=== PATIENT | male | born 1980 | race Caucasian/White ===

== ENCOUNTER 2019-01-06 11:46 | Inpatient (IN) ==
[2019-01-06] MEDS ORDERED: VANCOMYCIN IV PER PHARMACY MISC SCH (12:15)
[2019-01-06] MEDS ORDERED: ZOFRAN IV PRN (13:09)
[2019-01-06] MEDS ORDERED: TYLENOL PO PRN (13:09)
--- NOTE | 2019-01-06 13:27 | HISTORY AND PHYSICAL ---
HISTORY: The patient stated that, I think on Friday, this is Friday, started noticing some swelling and pain in the left groin, consistent with what sounds like a carbuncle or a sebaceous cyst. It continued to grow and it became more painful with fluctuance and surrounding cellulitis. Saw Dr. Mauro in his office and he sent him over here. PAST MEDICAL HISTORY: 1. Hypertension. 2. Hyperlipidemia. 3. He has had MRSA in the left leg x2, the lower leg. This was after he was in a hot tub. He was down in [place] on vacation. 4. He has had a history of sleep apnea. PAST SURGICAL HISTORY: I think he has had some back surgery and surgery on his left knee. FAMILY HISTORY: Unremarkable. Did not report any distinct or certain organ system illnesses. SOCIAL HISTORY: Lives with his and family. Negative for alcohol, tobacco, or illicit drugs. REVIEW OF SYSTEMS: General: He is not reporting weight gain or loss. No fever or chills. HEENT: No change in visual or hearing acuity. No neck pain or adenopathy. Respiratory: No increased work of breathing or dyspnea. Cardiovascular: No chest pain or tachy palpitations. Gastrointestinal and Genitourinary: No gross hematuria or dysuria. Musculoskeletal and Neurologic: No focal complaints. PHYSICAL EXAMINATION: GENERAL: Awake and alert, oriented x3. Pleasant. Can give a good history. HEENT: Pupils are equal. NECK: No distended neck veins. LUNGS: Clear in all lung cao. CARDIOVASCULAR EXAMINATION: Regular rhythm and rate without murmur or S3. ABDOMEN: Soft. SKIN: Warm and dry. He has about a 3.5 cm swelling in the left femoral triangle which is fluctuant and very tender. Surrounding area of erythema and cellulitis. EXTREMITIES: His legs have no edema and no palpable cords. ASSESSMENT AND PLAN: 1. Appears to have a subcutaneous abscess. Suspect it is a carbuncle. It will need to be drained. Has some fluctuance. Suspect we will grow either streptococcus or staphylococcus, and we will put him on empiric antibiotics. Dr. Mauro is following. General surgery will be involved. 2. Hypertension. We will watch his blood pressure. 3. History of sleep apnea. Aware. 4. Hypercholesterolemia. Aware. 5. Labs are pending at this time. cc: Pardeep Shipman MD
--- NOTE | 2019-01-06 13:31 | Diag Imaging Result Doc PS360 ---
EXAM: CT PELVIS W/O CONTRAST INDICATION: left groin cellulitis TECHNIQUE: This exam was performed using automated exposure control, adjustment of mA or kV according to patient size, and/or use of iterative reconstruction technique. COMPARISON: 07/26/2010 FINDINGS: There is skin thickening and there is extensive edema involving the subcutaneous fat in the suprapubic and inguinal region on the left. No well-defined fluid collection is identified to indicate abscess given the limitations of an unenhanced study. There is mild reactive inguinal lymphadenopathy on the left. The intrapelvic structures are unremarkable. There is no evidence of acute osseous abnormality. IMPRESSION: Left suprapubic and inguinal cellulitis with reactive left inguinal lymphadenopathy as described. Electronically signed by Rj Back 01/06/2019 1:29 PM
[2019-01-06] MEDS: VANCOMYCIN 2 GM in NS 500 ML IV SCH (17:33)
--- NOTE | 2019-01-06 20:47 | INFECTIOUS DISEASE CONSULT REP ---
DATE: 01/06/2019 CONCLUSION: Mr. eWsley has a left groin cellulitis, after 2 recent bouts of methicillin-resistant Staphylococcus aureus infections to his left lower extremity. RECOMMENDATIONS: We have obtained a CT of his pelvis, and culture has been taken to the left groin wound, which is oozing. We expect the culture will show MRSA since he has had a recent history of 2 separate MRSA infections to that same lower extremity. We will start him on IV vancomycin per pharmacy to dose. He will need isolation due to history of recent MRSA. These plans have been discussed with and recommended by Dr. Mauro. DISCUSSION: Mr. Wesley first started having issues with his left calf back in October of this year at which time he was found to have a MRSA which did clear up after treatment with Bactrim. About a month and a half later, he had another MRSA infection which was found in his left ankle and that also cleared after another round of Bactrim. This past Friday he started having redness and swelling to the left groin which quickly progressed to cellulitis extending to the left inguinal and suprapubic areas with a raised draining wound. We saw him in our office this morning, and made him a direct admit to the hospital. REVIEW OF SYSTEMS: Constitutional: He denies any fever, chills or recent weight loss or gain. HEENT: No vision or hearing problems or tinnitus. Endocrine: No diabetes or thyroid issues. Respiratory: No shortness of breath, cough or sputum. Cardiovascular: Denies chest pain or palpitations. GI: No nausea, vomiting, or diarrhea. : No dysuria or flank pain. Musculoskeletal: No arthritis, joint or muscle aches or pains. Neurologic: No seizures, stroke or mini-stroke in his history. Hematology/oncology: No Cancer or blood dyscrasias in his history. Psychiatric: Positive for anxiety which is well controlled with medication. PAST MEDICAL HISTORY: Includes hypertension, hyperlipidemia, sleep apnea with CPAP at home, obesity, and anxiety. PAST SURGICAL HISTORY: Includes laminectomy x2 and a left knee arthroscopy. LABORATORY AND X-RAY: Today his creatinine is 0.9. His pelvis CT shows left suprapubic and inguinal cellulitis with reactive lymphadenopathy. There is no well-defined fluid collection to indicate abscess. The Gram stain of his left groin shows gram-positive cocci, 1+ and the final culture is pending. FAMILY HISTORY: Positive for hypertension and hyperlipidemia. 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 He lives with his and 2 children. They have 2 dogs and a cat. He used to smoke but quit over 10 years ago. No alcohol or illicit drug use. INFECTIOUS DISEASE: No history of UTIs or pneumonia; however, he has had prostatitis on two separate occasions. ALLERGIES: No known allergies to food or drugs. MEDICATIONS: Include Zocor, Cozaar, Norvasc, Bactrim, Belsomra, Trintellix, Victor and diclofenac. PHYSICAL EXAMINATION: Vital Signs: Are not listed at this point. His weight is 129 kg. Height is 6 feet. General: This is a fairly healthy-appearing, middle-aged gentleman. He is lying in bed, currently in no acute distress. HEENT: Atraumatic, normocephalic. Oral mucous membranes are pink and moist. Conjunctivae are pink. Neck: Supple. Trachea is midline. Cardiovascular: Heart rate and rhythm are regular. No gallops or murmurs are noted. Respiratory: Lung sounds are clear to auscultation bilaterally. No work of breathing is noted. Abdomen: Soft, obese, nontender. Bowel sounds are active. Integumentary: There is a raised, erythematous wound noted to his left groin, which is extremely tender with multiple areas of white pustules to the wound bed. The redness does extend down to the suprapubic and inguinal areas. Neurologic: He is awake, alert, oriented, able to move all extremities and walk independently. Thank you for allowing us to see Mr. Wesley. Dictated by NINA Madden for Alan Mauro MD cc: Alan Mauro MD [facility]
--- NOTE | 2019-01-06 21:13 | GENERAL SURGERY CONSULTATION ---
DATE: 01/06/2019 REQUESTING PHYSICIAN: Hospitalist. REASON FOR CONSULTATION: Left groin abscess. HISTORY OF PRESENT ILLNESS: A 38-year-old gentleman who started noticing swelling in his left groin with erythema. They thought it was an infection. He had previously had these to his leg and was started on Bactrim. It has progressively gotten worse and more of an issue. He was sent to the emergency department. He had a CT scan done that showed cellulitis, but no discrete abscess in his groin. He has been admitted for IV antibiotics since he failed outpatient antibiotics. He is currently having pain in the left groin, but no other major issues or complaints. PAST MEDICAL HISTORY: Includes hypertension, hyperlipidemia, history of MRSA, history of sleep apnea. PAST SURGICAL HISTORY: Includes previous back surgery and surgery on his left knee. FAMILY HISTORY: Reviewed with patient, noncontributory. SOCIAL HISTORY: Lives with his . No alcohol, tobacco, or illicit drugs. HOME MEDICATIONS: Reviewed. He was on Bactrim. Current MAR reviewed. ALLERGIES: None. REVIEW OF SYSTEMS: A full 14 systems were reviewed and negative except those specified in HPI. PHYSICAL EXAMINATION: Vital Signs: Patient is currently afebrile. His vital signs stable. General: No acute distress. Alert, oriented male, looks stated age. HEENT: Normocephalic, atraumatic. Pupils equal, round, reactive to light. Mucous membranes moist. Oropharynx benign. Neck: Supple. Trachea midline. Cardiovascular: Regular rate and rhythm. Lungs: Grossly clear. Abdomen: Soft, nontender, nondistended. Extremities: Moves all extremities. Skin: Erythema noted to the left groin with some areas of induration. This is right above the inguinal canal. I do not feel any discrete fluctuance at this point. No active drainage. The erythema does spread significantly around the area. No crepitus noted. Vascular: All extremities perfuse. Neurologic: Grossly intact. LABORATORY: Creatinine is 0.9. Other labs are currently pending. CT scan as noted above. ASSESSMENT AND PLAN: A 38-year-old male with left groin erythema. 1. Left groin erythema. At this time, he does not have a discernible abscess, but he may develop one. We will keep him on IV antibiotics. We will add warm compresses to the area. We will monitor him closely. If he does seem developed something that can be drained, we will perform an incision and drainage, but otherwise we will follow up. 2. Multiple medical comorbidities currently being managed by the hospitalist service. cc: Ga Steinberg MD
[2019-01-07] MEDS: VANCOMYCIN 2 GM in NS 500 ML IV SCH ×3 (03:56→17:49)
--- NOTE | 2019-01-07 06:04 | GENERAL SURGERY PROGRESS NOTE ---
DATE: 01/07/2019 SUBJECTIVE: Patient seems to be doing okay. No major issues. OBJECTIVE: Vital signs: Patient is currently afebrile. His vital signs are stable. General: No acute distress. HEENT: Normocephalic, atraumatic. Pupils equal, round, reactive to light. Mucous membranes moist. Oropharynx benign. Neck: Supple. Trachea midline. Cardiovascular: Regular rate and rhythm. Lungs: Grossly clear. Abdomen: Soft, nontender, nondistended. Extremities: Moves all extremities. Skin: Wound to left groin slightly improved, does not seem drainable at this time, but is softening up a little bit, so may be more amenable in the near future. Vascular: All extremities perfused. Neurologic: Grossly intact. LABORATORY: None this morning as of yet. ASSESSMENT AND PLAN: A 38-year-old gentleman with left groin abscess. Left groin abscess. At this time, we will continue IV antibiotics. We will continue warm compresses. Again, it may develop into something I can drain at the bedside, which we would do if it becomes more fluctuant; but otherwise, we will continue current treatment. cc: Ga Steinberg MD
[2019-01-07 06:23] LABS: BASO# 0.03 X1000 (0.0-0.2); BASO% 0.3 % (0.0-0.8); EOS# 0.13 X1000 (0.0-0.7); EOS% 1.1 % (0.0-10.0); HEMATOCRIT 39.9 % (42.0-52.0); IMM GRAN# 0.04 X1000 (0.0-0.04); IMM GRAN% 0.3 % (0.0-0.5); LYMPH# 2.78 X1000 (1.2-3.4); LYMPH% 23.2 % (20.5-51.1); MCH 30.6 PG (27-31); MCHC 35.1 g/dL (33-37); MCV 87.1 FL (81-99); MONO# 1.39 X1000 (0.11-0.59); MONO% 11.6 % (1.7-9.3); MPV 9.9 FL (7.4-10.4); NEUT# 7.59 X1000 (1.4-6.5); NEUT% 63.5 % (42.2-75.2); PLT 249 X1000 (130-400); RBC 4.58 XMIL (4.7-6.1); RDW 12.4 % (11.5-14.5); WBC 11.96 X1000 (4.8-10.8)
[2019-01-07 06:57] LABS: AGAP 10; BUN 9 mg/dL (8-22); CALCIUM 8.8 mg/dL (8.8-10.2); CHLORIDE 101 mmol/L (98-107); COSMO 271; CREATININE 0.9 mg/dL (0.7-1.2); ESTIMATED GFR > 60; GLUCOSE 104 mg/dL (70-104); POTASSIUM 3.9 mmol/L (3.5-5.1); SODIUM 136 mmol/L (136-145); TCO2 25 mmol/L (25-35)
--- NOTE | 2019-01-07 19:16 | PROGRESS NOTE ---
DATE: 01/07/2019 SUBJECTIVE: As per the patient, he is feeling better. He is still having tenderness, swelling, redness, and an abscess formation at the level of the left groin area. Surgery Department and Infectious Disease Department following this patient closely. Microbiology showed gram-positive cocci. This patient has been placed on vancomycin. He has a history of MRSA before. OBJECTIVE: Vital Signs: Temperature 99.5 degrees, pulse 66, respiratory rate 16, blood pressure 147/73, oxygen saturation 99 on room air. HEENT: Head normocephalic, no trauma. PERRLA. Neck: Supple. No JVD. No masses. Central trachea. Chest: Clear to auscultation. No wheezing. No rales. Abdomen: Soft, nontender, nondistended. No hepatosplenomegaly. Extremities: He does have a left groin abscess. It is really tender to palpation, redness around it, swollen. It has been draining a little bit spontaneously, but he has some areas that are really hard on palpation. Neurological: The patient is alert and oriented x3. No focal deficits. LABORATORY: WBC 11.9, hemoglobin 14, hematocrit 39.9, platelets 249,000. Sodium 136, potassium 3.9, chloride 101, bicarbonate 25, BUN 9, creatinine 0.9, glucose 104, calcium 8.8. TSH 1.1. ASSESSMENT AND PLAN: 1. Left groin abscess. Continue with antibiotics. Surgery Department on board. Likely, this is going to be drained at some point. 2. Hypertension. Stable. Continue with same treatment. 3. History of methicillin-resistant Staphylococcus aureus in the past. Aware. He has been placed on vancomycin. Likely, this new infection is due to methicillin-resistant Staphylococcus aureus as well. 4. Hyperlipidemia. I will restart this patient's simvastatin. cc: Darren Garcia MD
--- NOTE | 2019-01-07 19:28 | INFECTIOUS DISEASE PROGRESS NO ---
DATE: 01/07/2019 PRESENT ILLNESS: Mr. Wesley is being treated for left groin cellulitis that is growing a gram- positive coccus, which we think will be MRSA in light of his recent MRSA infections to his left lower extremity. MEDICATIONS: He is receiving IV vancomycin per pharmacy dosing. OBJECTIVE: Vital signs: Temperature is 98.4 degrees, pulse rate 74, respiratory rate 16, blood pressure 140/77, O2 saturation is 99% on room air. General: This is a fairly healthy-appearing middle-aged gentleman lying in bed, currently in no acute distress. HEENT: Atraumatic, normocephalic. Oral mucous membranes are pink and moist. Conjunctivae are pink. Neck is supple. Trachea is midline. Respiratory: Lung sounds are bilaterally clear to auscultation with no work of breathing noted. Cardiovascular: Heart rate and rhythm are regular. Normal sinus rhythm on the monitor. Abdomen is soft, obese and nontender. Bowel sounds are active. Integumentary: There is a wound to the left groin with a with erythema noted to extend around to the hip and down to the suprapubic area. The wound is somewhat smaller in height than it was yesterday. The wound bed has erythema with some white pus noted to the center. The area is tender and indurated. Neurologic: He is awake, alert and oriented. Able to ambulate independently without assistance. LABORATORY DATA: Today his white count is 11.96, hemoglobin 14, platelet count 249,000. Creatinine is 0.9. Estimated GFR is greater than 60. The left groin has grown a gram-positive coccus. No imaging reports today. ASSESSMENT AND PLAN: Mr. Wesley is being treated for left groin cellulitis, which most likely has a methicillin-resistant Staphylococcus aureus infection. The plan will be for him to go home tomorrow after peripherally inserted central catheter line is inserted. He will need two weeks of intravenous vancomycin per pharmacy dosing, and an order has been put in for [facility] to provide his medication at home. We have also put in an order for PT/INR to be drawn in the morning as well as a peripherally inserted central catheter line inserted before he leaves tomorrow. We will also go ahead and order a CBC in the morning to check his white count again. I have explained to him at length regarding the procedure for peripherally inserted central catheter line insertion and protocol, as well as the possible side effects of the vancomycin to report which include rash, diarrhea, oral candidiasis, priti and renal toxicity. The patient stated understanding and would like to proceed. These plans have been discussed with and recommended by Dr. Mauro. COMORBIDITIES: for Mr. Wesley include obesity and previous methicillin- resistant Staphylococcus aureus infections. Dictated by NINA Madden for Alan Mauro MD cc: Alan Mauro MD [facility]
[2019-01-08 06:17] LABS: BASO# 0.03 X1000 (0.0-0.2); BASO% 0.3 % (0.0-0.8); EOS# 0.15 X1000 (0.0-0.7); EOS% 1.7 % (0.0-10.0); HEMATOCRIT 39.7 % (42.0-52.0); HEMOGLOBIN 13.9 g/dL (14.0-18.0); IMM GRAN# 0.03 X1000 (0.0-0.04); IMM GRAN% 0.3 % (0.0-0.5); LYMPH# 2.74 X1000 (1.2-3.4); LYMPH% 31.4 % (20.5-51.1); MCH 30.8 PG (27-31); MCV 87.8 FL (81-99); MONO# 0.82 X1000 (0.11-0.59); MONO% 9.4 % (1.7-9.3); MPV 9.9 FL (7.4-10.4); NEUT# 4.96 X1000 (1.4-6.5); NEUT% 56.9 % (42.2-75.2); PLT 277 X1000 (130-400); RBC 4.52 XMIL (4.7-6.1); RDW 12.4 % (11.5-14.5); WBC 8.73 X1000 (4.8-10.8)
[2019-01-08] MEDS: VANCOMYCIN 2 GM in NS 500 ML IV SCH ×2 (06:32→19:35)
[2019-01-08 06:36] LABS: INR 1.06; PROTIME 13.9 Seconds (11.0-16.0)
[2019-01-08 06:46] LABS: AGAP 9; BUN 9 mg/dL (8-22); CALCIUM 8.7 mg/dL (8.8-10.2); CHLORIDE 102 mmol/L (98-107); COSMO 275; ESTIMATED GFR > 60; GLUCOSE 102 mg/dL (70-104); POTASSIUM 4.1 mmol/L (3.5-5.1); SODIUM 138 mmol/L (136-145); TCO2 27 mmol/L (25-35)
--- NOTE | 2019-01-08 07:20 | GENERAL SURGERY PROGRESS NOTE ---
DATE: 01/08/2019 SUBJECTIVE: Patient seems to be doing okay. Nursing staff reports no major issues. He reports the area seems to be improving to him. OBJECTIVE: Vital Signs: Patient is currently afebrile. His vital signs are stable. General: No acute distress. HEENT: Normocephalic, atraumatic. Pupils equal, round, reactive to light. Mucous membranes moist. Oropharynx benign. Neck: Supple. Trachea midline. Cardiovascular: Regular rate and rhythm. Lungs: Grossly clear. Abdomen: Soft, nontender. Left groin with less erythema, still has an area of induration. No real fluctuance. Extremities: Moves all extremities. Neurologic: Grossly intact. Skin: Wound as noted above. Vascular: All extremities perfused. LABORATORY DATA: White blood cell count yesterday was 11. Remainder of labs reviewed. Microbiology: None at this time. ASSESSMENT AND PLAN: A 38-year-old gentleman with left groin cellulitis and abscess. Left groin cellulitis. At this time, we will continue IV antibiotics. We will continue warm compresses. I think it is getting close to being a point where I can drain it but will need to continue to monitor it. Overall, I think it is improving. cc: Ga Steinberg MD
[2019-01-08] MEDS ORDERED: NS 250 ML ONE (08:19)
--- NOTE | 2019-01-08 08:27 | PROGRESS NOTE ---
DATE: 01/08/2019 SUBJECTIVE: Patient is resting comfortably in bed. Left groin abscess area looks better, still draining a little bit. Hopefully, Surgery Department will do an I and D on this patient. OBJECTIVE: Vital Signs: Temperature 98.5 degrees, pulse 62, respiratory rate 18, blood pressure 143/76, oxygen saturation 99 on room air. HEENT: Head normocephalic. No trauma. PERRLA. Neck: Supple. No JVD. No masses. Central trachea. Chest: Clear to auscultation. No wheezing. No rales. Abdomen: Soft, nontender, nondistended. No hepatosplenomegaly. Extremities: He does have a left groin abscess, tender to palpation, redness around it, it is swollen. It has been draining a little bit spontaneously, but he has some areas of induration. Neurological: Alert and oriented x3. No focal deficits. LABORATORY: WBC 8.7, hemoglobin 13.9, hematocrit 39.7, platelets 277,000. Sodium 138, potassium 4.1, chloride 102, bicarbonate 27, BUN 9, creatinine 1, glucose 102, calcium 8.7. ASSESSMENT AND PLAN: 1. Left groin abscess, continue with antibiotics. Surgery Department and Infectious Disease Department on board, hopefully we will do an I and D at some point. 2. Hypertension stable. Continue with current treatment. 3. History of MRSA in the past, aware. He has been placed on vancomycin. Continue with same treatment. 4. Hyperlipidemia. Continue with simvastatin. cc: Darren Garcia MD
[2019-01-08] MEDS: NORVASC PO SCH (09:55)
[2019-01-08] MEDS: ZOCOR PO SCH (09:55)
[2019-01-09] MEDS: VANCOMYCIN 2 GM in NS 500 ML IV SCH (05:36)
[2019-01-09 06:41] LABS: AGAP 9; BUN 8 mg/dL (8-22); CALCIUM 8.7 mg/dL (8.8-10.2); CHLORIDE 103 mmol/L (98-107); COSMO 278; CREATININE 0.9 mg/dL (0.7-1.2); ESTIMATED GFR > 60; GLUCOSE 103 mg/dL (70-104); POTASSIUM 4.3 mmol/L (3.5-5.1); SODIUM 140 mmol/L (136-145); TCO2 28 mmol/L (25-35)
--- NOTE | 2019-01-09 06:55 | GENERAL SURGERY PROGRESS NOTE ---
DATE: 01/09/2019 SUBJECTIVE: Patient seems to be doing okay. Apparently, per the patient, his left groin area started draining spontaneously yesterday. OBJECTIVE: Vital Signs: Patient is currently afebrile. His vital signs are stable. General: No acute distress. HEENT: Normocephalic, atraumatic. Pupils equal, round, reactive to light. Mucous membranes moist. Oropharynx benign. Neck: Supple. Trachea midline. Cardiovascular: Regular rate and rhythm. Lungs: Grossly clear. Abdomen: Soft, nontender, nondistended. Left groin abscess and cellulitis, improving. No active drainage, I can see where the previous drainage was. The erythema is much improved since admission. Extremities: Moves all extremities. Neurologic: Grossly intact. Skin: As noted above. Vascular: All extremities perfused. LABORATORY: Currently pending this morning. ASSESSMENT AND PLAN: A 38-year-old with left groin cellulitis Left groin cellulitis. At this time, he had some spontaneous drainage. Overall, it is improving. At this point, we might be able to hold off on incision and drainage since it opened up on its own. I would recommend continued antibiotics per infectious disease. But, otherwise, I think he is making good improvement. cc: Ga Steinberg MD
[2019-01-09] MEDS: NORVASC PO SCH (09:55)
[2019-01-09] MEDS: ZOCOR PO SCH (09:55)
[2019-01-09 11:58] VITALS: BP 135/83
--- NOTE | 2019-01-09 15:19 | DISCHARGE SUMMARY ---
ADMISSION DATE: 01/06/2019 DISCHARGE DATE: 01/09/2019 DISCHARGE DIAGNOSES: 1. Left groin abscess due to MRSA. 2. Hypertension. 3. Hyperlipidemia. 4. History of MRSA in the past. 5. Sleep apnea. PROCEDURES PERFORMED: Pelvis CT scan dated 01/06/2019, impression: Left suprapubic and inguinal cellulitis with reactive left inguinal lymphadenopathy. CONSULT: Infectious Disease Department, Alan Rodriguez. Surgery Department, Ga Flores. HOSPITAL COURSE: A 38-year-old male with a past medical history of MRSA infection, hypertension, hyperlipidemia, sleep apnea, who presented to the emergency department and was admitted on 01/06/2019 due to left groin pain, swelling and abscess, he states that for some days, he started noticing some swelling and pain in the left groin, and became painful and fluctuant, surrounded with cellulitis, he saw Dr. Mauro in the office and he was sent for hospitalization, he was placed on vancomycin. Culture has been taken in that area that showed MRSA, surgery department was consulted, but they did not do any kind of procedure because this lesion started to drain by itself. This patient will need to continue at home to complete 2 weeks of antibiotics with vancomycin. A PICC line has been placed and Infectious Disease Department and Surgery Department will monitor this patient closely as an outpatient. OBJECTIVE: Vital Signs: Temperature 98.7 degrees, pulse 50, pulse 73, respiratory rate 18, blood pressure 146/79 oxygen saturation 98 on room air. HEENT: Head normocephalic no trauma PERRLA. Neck: Supple. No JVD. No masses. Central trachea. Chest: Clear to auscultation. No wheezing. No rales. Abdomen: Soft, nontender, nondistended. No hepatosplenomegaly. Extremity: He does have a left groin abscess that is spontaneously draining, it is tender to palpation, redness around it but better, swollen. Neurological: The patient is alert. He is oriented x3. No focal deficits. LABORATORY: Sodium 140, potassium 4.3, chloride 103, bicarbonate 28, BUN 8, creatinine 0.9, glucose 103, calcium 8.7. DISCHARGE MEDICATIONS: 1. This patient will receive vancomycin at home every 12 hours. [facility] will take care of that. Infectious Disease Department on board and will monitor this patient as an outpatient. Amlodipine 10 mg p.o. daily, [place] 5 q. 6 hours as needed, losartan 100 mg p.o. daily, which will be on hold until he completed treatment with vancomycin due to nephrotoxicity. 2. Simvastatin 40 mg p.o. daily. 3. Trintellix 20 mg p.o. daily. FOLLOWUP: Follow up with Dr. Mauro in 2 weeks and follow up with Dr. Steinberg to monitor the groin abscess. Time discharging this patient 20 minutes. cc: Darren Garcia MD
== END 2019-01-09 13:05 | disposition home or self-care (01) | DRG 603 ==
LOC: DIRADM 11:46 → SUATTDRO 11:46 → EDIPHOLD 11:56 → 4N 13:10 → EDIPHOLD 13:48 → 4N 16:01
PROVIDERS: ATTEND Internal Medicine